=== PATIENT | female | born 1965 | race Caucasian/White ===

== ENCOUNTER 2020-11-01 14:56 | Emergency (ER) | payer OTHER, SELFPAY ==
[~2020-11-01] VITALS: Ht 167.6 cm; Wt 59.0 kg
[2020-11-01 14:58] VITALS: BP 169/98; Ht 167.6 cm; Wt 59.0 kg
== END 2020-11-01 20:47 | disposition left against medical advice (07) ==
LOC: ED 14:56
DX: R19.7 Diarrhea, unspecified (principal); R11.10 Vomiting, unspecified; M79.10 Myalgia, unspecified site; Z98.890 Other specified postprocedural states
CPT/HCPCS: U0003